=== PATIENT | female | born 1965 | race Caucasian/White ===

== ENCOUNTER 2016-11-25 08:45 | Day surgery (SDC) | payer BC ==
[~2016-11-25] VITALS: Ht 165.1 cm; Wt 93.0 kg
[~2016-11-25 08:45] MED LIST: HYDROmorphone 2 MG/ML VIAL IV PRN; INSU100C4 SQ; INSU100I30 SQ; IV RINGERS,LACTATED 1000ML 1,000 ML IV SCH; LIDOCAINE 1% 1 ML SYRINGE. ID PRN; METF-620 PO; MORPHINE SULFATE 2 MG/ML DISP.SYRIN. IV PRN; ONDANSETRON PF 4 MG/2 ML VIAL. IV PRN; PROCHLORPERAZINE 10 MG/2 ML VIAL. IV PRN; SIMV10TA3 PO; TRAM50TA PO; VALS1TAB8 PO; fentaNYL PF VIAL 100 MCG/2 ML VIAL IV PRN
[2016-11-25 09:18] LABS: NEG OBC UR NEG; POS OBC UR POS
[2016-11-25] MEDS ORDERED: LIDOCAINE 2% PF Vial for OR 5 ML VIAL. ONE (09:18)
[2016-11-25] MEDS ORDERED: PROPOFOL 20 ML IV ONE (09:18)
[2016-11-25] MEDS ORDERED: DEXAMETHASONE SOD PHOS 20 MG/5 ML VIAL. ONE (09:18)
[2016-11-25] MEDS ORDERED: MIDAZOLAM HCL/PF 2 MG/2 ML VIAL. ONE (09:18)
[2016-11-25] MEDS ORDERED: ONDANSETRON PF 4 MG/2 ML VIAL. ONE ×2 (09:18→11:23)
[2016-11-25] MEDS ORDERED: ROCURONIUM 50 MG/5 ML VIAL. ONE (09:18)
[2016-11-25] MEDS ORDERED: fentaNYL PF VIAL 100 MCG/2 ML VIAL ONE (09:18)
[2016-11-25] MEDS ORDERED: SUCCINYLCHOLINE 200 MG/10 ML VIAL. ONE (09:47)
[2016-11-25] MEDS ORDERED: BUPIVACAINE-EPI 0.5%-1:200000 50 ML VIAL. ONE (10:18)
[2016-11-25] MEDS ORDERED: IOHEXOL 300 MG/ML 50 ML VIAL. ONE (10:18)
[2016-11-25] MEDS ORDERED: SURGICEL HEMOSTAT 4X8 EACH. ONE (10:18)
[2016-11-25] MEDS ORDERED: GLYCOPYRROLATE 1 MG/5 ML VIAL. ONE (11:00)
[2016-11-25] MEDS ORDERED: NEOSTIGMINE METHYLSULFATE 5 MG/5 ML SYRINGE. ONE (11:00)
[2016-11-25] MEDS ORDERED: ePHEDrine PF IN SALINE 50 MG/5 ML DISP.SYRIN IV ONE (11:05)
[2016-11-25] MEDS ORDERED: DESFLURANE 61 TO 120 MINUTES IH ONE (11:23)
--- NOTE | 2016-11-25 11:27 | RAD ---
Indication operative cholangiogram. Assess for potential complication. Protocol study. Evaluate for potential cholelithiasis. For members of the Department of surgery fluoroscopy was provided. 2 spot films were obtained. Fluoroscopy time associated with the imaging was 15 seconds. The common bile duct appears unremarkable. No filling defects are seen. Contrast flows unremarkably into the duodenum. IMPRESSION: Normal operative cholangiogram
[2016-11-25] MEDS ORDERED: KETOROLAC 60 MG/2 ML INJ FOR OR. ONE (11:29)
--- NOTE | 2016-11-25 11:57 | PDOC4 ---
Operative Note Operative Note Operative Note: Preoperative Diagnosis: Symptomatic cholelithiasis, right abdominal wall mass Postoperative Diagnosis: Same Procedure: Laparoscopic cholecystectomy with intraoperative cholangiogram, excision of right abdominal wall mass Surgeons: Rafal Experimental Welder: Sotero MCMULLEN Anesthesia: Gen. Estimated Blood Loss: 25 mL Specimen: Gallbladder to pathology, abdominal wall mass to pathology Drains: None Complications: None Indications: The patient is a 51-year-old female who is been experiencing recurrent upper abdominal pain consistent with biliary colic. Her evaluation included a sonogram which showed gallstones. In addition she has a slowly enlarging right lateral abdominal wall mass consistent with a lipoma. Surgical treatment was offered by means of a laparoscopic cholecystectomy combined with excision of the abdominal wall mass. The risks of surgery were discussed which include bleeding, infection, bile duct injury, bile leak, pain, the potential for additional surgeries or procedures. The patient understands and would like to proceed. Description: The patient was taken to the operating room and laid supine on the operating table. General anesthesia was performed. The abdomen was prepped with ChloraPrep and draped in a standard surgical fashion. A small infraumbilical incision was made with a scalpel. The Veress needle was then inserted and a pneumoperitoneum was then created. A 5 mm trocar was then inserted and the laparoscope was introduced. In the upper midabdomen a 5 mm trocar was inserted and in the right upper quadrant two 2.3 mm mini lap graspers were inserted. The gallbladder was retracted cephalad. The cystic duct was dissected free from surrounding tissues. One clip was placed on the duct near the gallbladder junction. An opening was made in the duct and a cholangiocatheter placed within and secured with a clip. Using contrast dye and fluoroscopy an intraoperative cholangiogram was performed that appeared unremarkable. The clip and catheter were then withdrawn. Three clips were placed on the cystic duct and it was divided. The cystic artery was then identified, dissected free, doubly clipped and divided as well. The gallbladder was then mobilized away from the liver with cautery. The umbilical 5 millimeter trocar was exchanged for an 11 millimeter trocar. The gallbladder was then placed in an endoscopic bag and extracted at the umbilical trocar site. The fascia there was closed with an 0 Vicryl suture. All blood and irrigation fluid was suctioned and hemostasis was good. The remaining ports were removed and the pneumoperitoneum was relieved. Attention was then directed to the mass located in the lateral superior aspect of the abdomen. An incision was made in the skin with a scalpel directly overlying the subcutaneous mass. Cautery dissection was carried through the subcutaneous tissue. The mass was then readily identified and appeared to consist of encapsulated fatty tissue consistent with a large lipoma. The mass was mobilized from the surrounding tissues with a combination of sharp and blunt dissection. The mass was then fully excised and measured 8 x 5 cm. The mass was sent to pathology for evaluation. Hemostasis was readily achieved with cautery. The subcutaneous tissue was then approximated with 3-0 Vicryl. The skin incisions were injected with half percent Marcaine with epinephrine, and all were closed using 4-0 Monocryl suture. Steri-Strips and dressings were then applied. The patient tolerated the procedure well and was sent to the recovery room in stable condition. At the end of the case all counts were correct. RENÉ CALVO MD Nov 25, 2016 11:57
--- NOTE | 2016-11-25 12:00 | DISCH ---
DISCHARGE INSTRUCTIONS Condition on Discharge Condition on Discharge: Stable Activity After Discharge Activity Instructions for Disc: Other, see below (no lifting over 20 lbs X 2 weeks) Driving Instructions after Dis: Other, see below (no driving while taking pain meds) Diet after Discharge Diet after Discharge: Regular Wound Incision Care Wound/Incision Care: Other, see below (may remove bandaids and shower tomorrow) Follow-Up Follow up with: Dr Calvo in 2 weeks in office, call for appt [phone] RENÉ CALVO MD Nov 25, 2016 12:00
[2016-11-25] MEDS: fentaNYL PF VIAL 100 MCG/2 ML VIAL IV PRN ×4 (12:16→13:08)
[2016-11-25] MEDS ORDERED: ONDA4TAB7 PO (12:26)
[2016-11-25] MEDS ORDERED: OXYC-323 PO (12:26)
[2016-11-25] MEDS ORDERED: INSULIN ASPART 100 UNIT/ML 10ML VIAL. SQ ONE ×2 (12:38→12:45)
[2016-11-25] MEDS ORDERED: oxyCODONE/APAP 5/325 1 TAB TABLET PO ONE (14:00)
[2016-11-25 14:24] VITALS: BP 111/58
--- NOTE | 2016-11-26 16:32 | PATHOLOGY ---
PATHOLOGY REPORT * * * * * * * * FINAL DIAGNOSIS: A. Gallbladder, laparoscopic cholecystectomy: - Cholelithiasis. - Chronic cholecystitis. B. Segment of fibroadipose tissue, right abdominal wall mass excision: - Lipoma. Comment: There is no evidence of malignancy. (JPM:pit; 11/26/2016) REPORT ELECTRONICALLY SIGNED BY: Lalo Duval M.D. DATE/TIME: 11/26/2016 16:32 * * * * * * * * GROSS PATHOLOGY: A. Received in formalin labeled "Anisa Perdomo, gallbladder and contents," is a 6.5 x 4.0 x 0.8 cm, intact gallbladder with yellow wall serosal surfaces. Opening the gallbladder reveals dark reddish brown, velvety mucosa and an average wall thickness of 0.3 cm. Calculi are present and no masses are noted grossly. Java Programmer Analyst sections from the body and fundus are submitted along with the proximal margin in cassette A1. B. Received in formalin labeled "right abdominal wall mass," is a segment of well circumscribed, thinly encapsulated, lobulated fibroadipose tissue measuring 7.3 x 4.7 x 2.2 cm in maximum dimensions. The specimen weighs 45.2g. The margins are inked. Sectioning reveals homogeneous, bright yellow cut surfaces. Java Programmer Analyst tissue is submitted in cassette B1. (JPM; 11/25/16) INITIAL CPT CODE(S): A; 98107 B; 55309 Professional services performed [place] [facility] [place] [address] Technical services performed by [facility] at [address] [place] [address], [facility] [address] [address]. SPECIMEN(S) RECEIVED: A.Gallbladder and contents B.Right abdominal wall mass CLINICAL HISTORY: Symptomatic cholelithiasis PATIENT: ANISA PERDOMO /AGE: 308/01/1965 (Age: 51) PATIENT #: [id number] ALT CASE #: SPECIMEN COLLECTION DATE: 11/25/2016 SPECIMEN RECEIVED DATE: 11/25/2016 [facility] - [id number] [place] [id number] - PHONE: [phone] * * * END OF REPORT * * *
== END 2016-11-25 14:51 | disposition home or self-care (01) ==
LOC: SURG 08:45
PROVIDERS: ATTEND Surgery
DX: K80.10 Calculus of gallbladder with chronic cholecystitis without obstruction (principal); D17.5 Benign lipomatous neoplasm of intra-abdominal organs; E78.00 Pure hypercholesterolemia, unspecified; I10 Essential (primary) hypertension; E66.9 Obesity, unspecified; Z68.43 Body mass index [BMI] 50.0-59.9, adult; Z86.39 Personal history of other endocrine, nutritional and metabolic disease; Z72.89 Other problems related to lifestyle
CPT/HCPCS: 47563; 74300; 81025; 82962; 88304; C1769; J0330; J0690; J1100; J1815; J1885; J2001; J2250; J2270; J2405; J2704; J2710; J3010; J3490; J7030; J7120; Q9967

== ENCOUNTER → 2017-06-05 | Outpatient (CLI) | payer BC | END | disposition home or self-care (01) | LOC: MAMMO 12:53 | DX: Z12.31 Encounter for screening mammogram for malignant neoplasm of breast (principal) | CPT/HCPCS: 77067 ==

== ENCOUNTER → 2018-04-19 | Outpatient (CLI) | payer BC ==
[~2018-04-19] MED LIST changes: -HYDROmorphone 2 MG/ML VIAL IV PRN; -IV RINGERS,LACTATED 1000ML 1,000 ML IV SCH; -LIDOCAINE 1% 1 ML SYRINGE. ID PRN; -METF-620 PO; +METF10007 PO; -MORPHINE SULFATE 2 MG/ML DISP.SYRIN. IV PRN; +ONDA4TAB7 PO; -ONDANSETRON PF 4 MG/2 ML VIAL. IV PRN; +OXYC1TAB15 PO; -PROCHLORPERAZINE 10 MG/2 ML VIAL. IV PRN; -fentaNYL PF VIAL 100 MCG/2 ML VIAL IV PRN
--- NOTE | 2018-04-19 19:01 | KCIC ---
MRI of the thoracic spine without contrast 04/19/2018 CLINICAL HISTORY: Mid back pain. TECHNIQUE: Unenhanced T1-weighted, T2-weighted and inversion recovery sagittal and T2-weighted axial images of the thoracic spine were obtained. FINDINGS: Minimal S-shaped curvature of the thoracolumbar spine is seen. Degenerative signal changes are seen involving all of the disks of the thoracic spine. Degenerative signal changes are seen within the marrow surrounding these discs. No area of abnormal signal intensity is seen involving the thoracic spinal cord. Multiple parapelvic cysts are seen involving both kidneys. These measure 5 mm to 2 cm in size. A 5 mm hepatic cyst is seen involving the right lobe of the liver. Degenerative changes are seen involving the thoracic disc spaces consisting of minimal generalized disc bulges and degenerative changes involving the facet joints. At the T7-8 disc space a right paracentral focal disc is seen. This measures 5 mm in AP diameter. This results in mild to moderate right-sided central spinal canal stenosis with mild to moderate right-sided cord impingement. No neural foraminal stenosis is seen. IMPRESSION: Degenerative changes are seen involving the thoracic spine as outlined above. At the T7-8 disc space, a right paracentral focal disc herniation is seen. This results in mild to moderate right-sided central spinal canal stenosis with mild to moderate right sided cord impingement. No neural foraminal stenosis is seen. Electronically signed by: Emiliano Lowery MD (04/19/2018 6:57 PM) [id number]
== END | disposition home or self-care (01) ==
LOC: KCIC MRI 16:30
PROVIDERS: ATTEND Family Medicine
DX: M51.24 Other intervertebral disc displacement, thoracic region (principal); M51.34 Other intervertebral disc degeneration, thoracic region; M48.04 Spinal stenosis, thoracic region; K76.89 Other specified diseases of liver; N94.89 Other specified conditions associated with female genital organs and menstrual cycle
CPT/HCPCS: 72146

== ENCOUNTER → 2018-07-01 | Outpatient (CLI) | payer BC ==
--- NOTE | 2018-07-01 15:00 | RAD ---
DATE: 07/01/2018 EXAM: MAMMO MARY SCREENING BILATERAL HISTORY: Routine screening COMPARISON: 06/05/2017 This study was interpreted with the benefit of Computerized Aided Detection (CAD). Breast Density: HETERO The breast parenchyma is heterogenously dense, which could reduce sensitivity of mammography. Breast parenchyma level C. FINDINGS: 2-D and 3-D tomosynthesis imaging was performed in CC and MLO projections. No new or enlarging breast densities are seen. Minimal benign type calcifications present. No suspicious microcalcifications have developed. IMPRESSION: Stable mammograms without evidence of malignancy. BI-RADS CATEGORY: 1 NEGATIVE RECOMMENDED FOLLOW-UP: 12M 12 MONTH FOLLOW-UP PQRS compliance statement: Patient information was entered into a reminder system with a target due date for the next mammogram. Mammography is a sensitive method for finding small breast cancers, but it does not detect them all and is not a substitute for careful clinical examination. A negative mammogram does not negate a clinically suspicious finding and should not result in delay in biopsying a clinically suspicious abnormality. "Our facility is accredited by the [employer] Mammography Program."
== END | disposition home or self-care (01) ==
LOC: MAMMO 12:42
PROVIDERS: ATTEND Family Medicine
DX: Z12.31 Encounter for screening mammogram for malignant neoplasm of breast (principal)
CPT/HCPCS: 77063; 77067

== ENCOUNTER → 2020-11-06 | Outpatient (CLI) | payer BC ==
[~2020-11-06] MED LIST changes: +SIMV10TA15 PO; -SIMV10TA3 PO
--- NOTE | 2020-11-06 16:45 | RAD ---
EXAM: BILATERAL DIGITAL 3D SCREENING MAMMOGRAPHY. HISTORY: Routine mammographic screening. TECHNIQUE: Bilateral digital 3D and tomographic images were obtained in CC and MLO projections. Compu ter-aided detection was applied. COMPARISON: 07/01/2018, 06/05/2017. COMPOSITION: B. There are scattered areas of fibroglandular density. FINDINGS: There are no suspicious masses, microcalcifications or architectural distortion. The parenc hymal pattern is stable. Scattered calcifications are benign. BI-RADS CATEGORY 2: Benign. RECOMMENDATION: 1. Routine screening mammography in one year. If mammography demonstrates dense breast tissue (heterogenously dense or extremely dense, category C or D), which could hide abnormalities, and if other risk factors for breast cancer have been identifi ed, supplemental screening tests that may be suggested by the ordering physician may be of benefit. D ense breast tissue, in and of itself, is a relatively common condition. Therefore, this information i s not provided to cause undue concern, but rather to raise awareness and to promote discussion with t he referring physician regarding the presence of other risk factors, in addition to dense breast tiss ue. The results of this mammography examination is provided to the patient and referring physician. T he patient should contact their referring physician if any questions or concerns exist regarding this report. PQRS compliance statement - Patient information was entered into a reminder system with a target due date for the next mammogram. "Our facility is accredited by the [employer] Mammography Program." Electronically signed by: Sam Can MD (11/06/2020 4:42 PM) [id number]
== END ==
LOC: MAMMO 15:03
PROVIDERS: ATTEND Family Medicine
DX: Z12.31 Encounter for screening mammogram for malignant neoplasm of breast (principal)
CPT/HCPCS: 77063; 77067